=== PATIENT | male | born 1950 | race Caucasian/White ===

== ENCOUNTER 2020-03-01 09:58 | Outpatient (CLI) | payer MEDICARE | END 2020-03-01 09:59 | disposition critical access hospital (66) | LOC: EMS 09:58 | PROVIDERS: ATTEND Surgery | DX: R46.4 Slowness and poor responsiveness (principal); R53.83 Other fatigue | CPT/HCPCS: A0425; A0427 ==

== ENCOUNTER 2020-03-01 10:42 | Emergency (ER) | payer MEDICARE, OTHER ==
[2020-03-01] MEDS ORDERED: SODIUM CHLORIDE 0.9% 1,000 ML IV STA ×2 (11:02→13:02)
--- NOTE | 2020-03-01 11:04 | ED Physician Documentation ---
PD HPI SYNCOPE - Stated complaint Stated Complaint: WEAKNESS - Chief complaint Chief Complaint: General - History obtained from History obtained from: Patient, Family (), EMS (reportedly the patient felt some general weakness then had fainting, was unresponsive for about a minute. Medics arrived and he was awake, but BP was low in 60s. Improved with IV fluids. At baseline enroute and arrival here ( told medics he was at usual baseline at time they left the house with him).) - History of Present Illness Witnessed: Witnessed Timing - onset: How many minutes ago (2-3) Duration: Minutes Preceding symptoms: No: Headache, Chest pain Associated symptoms: No: Headache, Chest pain, Dyspnea, Nausea / vomiting, Abdominal pain Contributing factors: Decreased PO intake, Just stood up. No: Recent med change, Noxious stimulae Injury occurred: Fell. 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 Similar symptoms before: Has not had sx before Recently seen: Not recently seen Review of Systems Constitutional: denies: Fever, Chills Nose: denies: Rhinorrhea / runny nose, Congestion Throat: denies: Sore throat Respiratory: denies: Cough GI: denies: Abdominal Pain, Nausea, Vomiting, Diarrhea : denies: Dysuria Neurologic: reports: Generalized weakness PD PAST MEDICAL HISTORY - Past Medical History Past Medical History: No Cardiovascular: None Respiratory: None Neuro: Dementia - Allergies Allergies/Adverse Reactions: Allergies Allergy/AdvReac Type Severity Reaction Status Date / Time Unable to Assess Allergy Verified 03/01/20 10:58 - Living Situation Living Situation: reports: With spouse/s.o. Living Arrangement: reports: At home - Social History Does the pt smoke?: No Does the pt drink ETOH?: No Does the pt have substance abuse?: No - Family History Family history: reports: Non contributory PD ED PE NORMAL - Vitals Vital signs reviewed: Yes - General General: Alert and oriented X 3, Well developed/nourished - HEENT HEENT: Atraumatic, Pharynx benign. 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, No motor deficit, No sensory deficit, Normal speech Eye Opening: Spontaneous Motor: Obeys Commands Verbal: Oriented GCS Score: 15 Results - Vitals Vitals: Vital Signs - 24 hr 03/01/20 03/01/20 03/01/20 10:50 11:14 12:41 Temperature 36.4 C L Heart Rate 67 81 Heart Rate [ 80 Sitting] Heart Rate [ 88 Standing] Heart Rate [ 78 Supine] Respiratory 14 16 Rate Blood Pressure 113/65 143/90 H Blood Pressure 113/71 [Sitting] Blood Pressure 129/70 [Standing] Blood Pressure 106/75 [Supine] O2 Saturation 100 99 03/01/20 14:00 Temperature Heart Rate 88 Heart Rate [ Sitting] Heart Rate [ Standing] Heart Rate [ Supine] Respiratory 12 Rate Blood Pressure 135/84 H Blood Pressure [Sitting] Blood Pressure [Standing] Blood Pressure [Supine] O2 Saturation 97 Oxygen O2 Source Room air - EKG (time done) 10:48 Rate: Rate (enter#) (59) Rhythm: NSR [place]: Normal Intervals: Normal CO QRS: Normal Ischemia: Normal ST segments. No: ST elevation c/w ischemia, ST depression - Labs Labs: Laboratory Tests 03/01/20 03/01/20 03/01/20 11:41 11:41 11:41 WBC 12.3 H RBC 4.45 L Hgb 11.4 L Hct 36.6 L MCV 82.2 MCH 25.6 L MCHC 31.1 L RDW 15.8 H Plt Count 314 MPV 9.8 Neut # (Auto) 10.8 H Lymph # (Auto) 0.6 L [place] # (Auto) 0.7 Eos # (Auto) 0.1 Baso # (Auto) 0.1 Absolute Nucleated RBC 0.00 Nucleated RBC % 0.0 Sodium 137 Potassium 3.9 Chloride 104 Carbon Dioxide 25 Anion Gap 8.0 BUN 12 Creatinine 0.8 Estimated GFR (MDRD) 96 Glucose 116 H Lactic Acid Calcium 8.7 Magnesium 2.2 Total Bilirubin 0.3 AST 19 ALT 16 Alkaline Phosphatase 60 Troponin I High Sens 2.9 Total Protein 6.0 L Albumin 3.6 Globulin 2.4 Albumin/Globulin Ratio 1.5 Lipase 28 TSH Urine Color Urine Clarity Urine pH Ur Specific [place] Urine Protein Urine Glucose (UA) Urine Ketones Urine Occult Blood Urine Nitrite Urine Bilirubin Urine Urobilinogen Ur Leukocyte Esterase Ur Microscopic Review Urine Culture Comments Ethyl Alcohol < 5.0 03/01/20 03/01/20 03/01/20 11:41 11:41 12:46 WBC RBC Hgb Hct MCV MCH MCHC RDW Plt Count MPV Neut # (Auto) Lymph # (Auto) [place] # (Auto) Eos # (Auto) Baso # (Auto) Absolute Nucleated RBC Nucleated RBC % Sodium Potassium Chloride Carbon Dioxide Anion Gap BUN Creatinine Estimated GFR (MDRD) Glucose Lactic Acid 1.8 Calcium Magnesium Total Bilirubin AST ALT Alkaline Phosphatase Troponin I High Sens Total Protein Albumin Globulin Albumin/Globulin Ratio Lipase TSH 1.73 Urine Color YELLOW Urine Clarity CLEAR Urine pH 8.5 H Ur Specific [place] 1.020 Urine Protein TRACE Urine Glucose (UA) NEGATIVE Urine Ketones NEGATIVE Urine Occult Blood NEGATIVE Urine Nitrite NEGATIVE Urine Bilirubin NEGATIVE Urine Urobilinogen 0.2 (NORMAL) Ur Leukocyte Esterase NEGATIVE Ur Microscopic Review NOT INDICATED Urine Culture Comments NOT INDICATED Ethyl Alcohol - Rads (name of study) chest xray Radiology: Prelim report reviewed, See rad report (no acute process) PD MEDICAL DECISION MAKING - ED course Complexity details: reviewed results, re-evaluated patient (appears well with full color, and with him in room says he is acting at his usual alertness with the baseline orientation deficit from dementia. ), considered differential, d/w patient Departure - Departure Disposition: 01 Home, Self Care Clinical Impression: Transient hypotension Episode of syncope Qualifiers: Syncope type: unspecified Qualified Code(s): R55 - Syncope and collapse Condition: Stable Record reviewed to determine appropriate education?: Yes Instructions: ED Fainting Unkn Cause Follow-Up: Asher Campbell MD [Primary Care Provider] - Comments: No signs of obvious infection. I am not sure the cause of the syncopal episode. He looks good at this point. Stay well-hydrated and continue usual medicines. Recheck if recurrent episodes. Discharge Date/Time: 03/01/20 14:20
[2020-03-01 11:47] LABS: BASOPHILS # (AUTO) 0.1 10^3/uL (0.0-0.1); BASOPHILS % (AUTO) 0.4 %; EOSINOPHILS # (AUTO) 0.1 10^3/uL (0.0-0.7); EOSINOPHILS % (AUTO) 0.8 %; HGB - HEMOGLOBIN 11.4 g/dL (14.0-18.0); LYMPHOCYTES # (AUTO) 0.6 10^3/uL (1.5-3.5); LYMPHOCYTES % (AUTO) 4.6 %; MEAN CORPUSCULAR HEMOGLOBIN 25.6 pg (27.0-31.0); MEAN CORPUSCULAR HGB CONC 31.1 g/dL (32.0-36.0); MEAN CORPUSCULAR VOLUME 82.2 fL (80.0-94.0); MEAN PLATELET VOLUME 9.8 fL (7.4-11.4); MONOCYTES # (AUTO) 0.7 10^3/uL (0.0-1.0); MONOCYTES % (AUTO) 5.7 %; NEUTROPHILS # (AUTO) 10.8 10^3/uL (1.5-6.6); PLT - PLATELET COUNT 314 10^3/uL (130-450); RED BLOOD COUNT 4.45 10^6/uL (4.70-6.10); RED CELL DISTRIBUTION WIDTH 15.8 % (12.0-15.0); WHITE BLOOD COUNT 12.3 x10^3/uL (4.8-10.8)
--- NOTE | 2020-03-01 11:48 | XRAY Report ---
Reason: chest pain Procedure Date: 03/01/2020 Accession Number: [id number] / [id number] Procedure: XR - Chest 1 View X-Ray CPT Code: 21910 Final Report FULL RESULT: EXAM: CHEST RADIOGRAPHY EXAM DATE: 03/01/2020 11:19 AM. CLINICAL HISTORY: Chest pain. COMPARISON: None. TECHNIQUE: 1 view. FINDINGS: Lungs/Pleura: No focal opacities evident. No pleural effusion. No pneumothorax. Mediastinum: Within exam limitations, the cardiomediastinal contour is normal. Other: Mild dextrocurvature of the thoracic spine. IMPRESSION: No acute cardiopulmonary process. RADIA
[2020-03-01 12:37] LABS: ALBUMIN 3.6 g/dL (3.2-5.5); ALBUMIN/GLOBULIN RATIO 1.5 (1.0-2.2); ALKALINE PHOSPHATASE 60 IU/L (42-121); ALT ALANINE AMINOTRANSFERASE 16 IU/L (10-60); AST ASPARTATE AMINOTRANSFERASE 19 IU/L (10-42); BILIRUBIN,TOTAL 0.3 mg/dL (0.2-1.0); BUN - BLOOD UREA NITROGEN 12 mg/dL (6-20); CALCIUM 8.7 mg/dL (8.5-10.3); CARBON DIOXIDE - CO2 25 mmol/L (21-32); CHLORIDE 104 mmol/L (101-111); CREATININE 0.8 mg/dL (0.6-1.2); GLUCOSE 116 mg/dL (70-100); LIPASE 28 U/L (22-51); MAGNESIUM 2.2 mg/dL (1.7-2.8); SODIUM 137 mmol/L (135-145)
[2020-03-01 12:46] LABS: BILIRUBIN,URINE NEGATIVE (NEGATIVE); GLUCOSE, URINE (UA) NEGATIVE (NEGATIVE); KETONES,URINE (UA) NEGATIVE (NEGATIVE); LEUKOCYTE ESTERASE, URINE NEGATIVE (NEGATIVE); NITRITE,URINE NEGATIVE (NEGATIVE); OCCULT BLOOD,URINE NEGATIVE (NEGATIVE); PH,URINE 8.5 PH (5.0-7.5); PROTEIN,URINE TRACE mg/dL (NEGATIVE); UROBILINOGEN,URINE 0.2 (NORMAL) E.U./dL (NORMAL)
[2020-03-01 12:53] LABS: CLARITY,URINE CLEAR (CLEAR)
[2020-03-01 14:10] VITALS: BP 135/84
== END 2020-03-01 14:20 | disposition home or self-care (01) ==
LOC: EDBD → ED 10:42
DX: I95.9 Hypotension, unspecified (principal); R55 Syncope and collapse; F03.90 Unspecified dementia, unspecified severity, without behavioral disturbance, psychotic disturbance, mood disturbance, and anxiety
CPT/HCPCS: 36415; 71045; 80053; 80320; 81001; 81003; 83605; 83690; 83735; 84443; 84484; 85025; 87086; 93005; 96360; 96361; 99284

== ENCOUNTER 2020-05-13 14:45 | Emergency (ER) | payer MEDICARE ==
--- NOTE | 2020-05-13 15:09 | ED Physician Documentation ---
PD HPI MALE - Stated complaint Stated Complaint: MALE - Chief complaint Chief Complaint: Abd Pain - History obtained from History obtained from: Patient, Family () - History of Present Illness Timing - onset: How many days ago (has had lower abd cramping pains for about a week, worse the past 2-3 days. Seen at [facility] yesterday and found to have urinary retention with over 900 ml and also constipation by CT scan. Sy placed and has Urology follow up next Tuesday (a week) Rx Miralax. Dose today without output.) Timing - duration: Days Timing - details: Gradual onset, Still present, Waxing and waning Associated symptoms: Unable to urinate (which was solved with sy yesterday). No: Dysuria Similar symptoms before: Has not had sx before Recently seen: Emergency Dept (yesterday in [place].) Review of Systems Constitutional: denies: Fever, Chills Nose: denies: Rhinorrhea / runny nose, Congestion Throat: denies: Sore throat Cardiac: denies: Chest pain / pressure Respiratory: denies: Cough GI: reports: Abdominal Pain (intermittent lower cramps), Constipation. denies: Abdominal Swelling, Nausea, Vomiting, Diarrhea : reports: Unable to Void Skin: denies: Rash, Lesions Neurologic: reports: Generalized weakness. denies: Focal weakness, Numbness, Near syncope, Headache, Head injury Immunocompromised: denies: Immunocompromised PD PAST MEDICAL HISTORY - Past Medical History Cardiovascular: None Respiratory: None Neuro: Dementia GI: None : Benign prostate hypertrophy - Present Medications Home Medications: Ambulatory Orders Medication Instructions Recorded Confirmed Chlorhexidine Gluconate [Hibiclens] 15 ml TP DAILY #236 ml 05/13/20 Polyethylene Glycol 3350 [Miralax] 17 gm PO DAILY PRN #1 bottle 05/13/20 - Allergies Allergies/Adverse Reactions: Allergies Allergy/AdvReac Type Severity Reaction Status Date / Time Unable to Assess Allergy Verified 03/01/20 10:58 - Living Situation Living Situation: reports: With spouse/s.o. Living Arrangement: reports: At home - Social History Does the pt smoke?: No Smoking Status: Never smoker Does the pt drink ETOH?: No Does the pt have substance abuse?: No PD ED PE NORMAL - Vitals Vital signs reviewed: Yes - General General: Alert and oriented X 3, No acute distress, Well developed/nourished - HEENT HEENT: Pharynx benign - Neck Neck: Supple, no meningeal sign, No adenopathy - Cardiac Cardiac: RRR, No murmur - Respiratory Respiratory: Clear bilaterally - Abdomen Abdomen: Normal bowel sounds, Soft, Non distended, No organomegaly, Other (minimally tender lower abd without guarding nor percussion tenderness. ) - Male Male : Other (sy in place, draining dark yellow urine. ) - Rectal Rectal: Other (small amount soft brown stool in vault. No impaction. Not tender. ) - Derm Derm: Normal color, Warm and dry - Extremities Extremities: No tenderness to palpate, Normal ROM s pain - Neuro Neuro: Alert and oriented X 3, No motor deficit, Normal speech, Other (forgetful of short term memory) Results - Vitals Vitals: Vital Signs - 24 hr 05/13/20 05/13/20 14:53 19:00 Temperature 36.8 C Heart Rate 70 78 Respiratory 14 13 Rate Blood Pressure 134/112 H 144/98 H O2 Saturation 99 99 Oxygen O2 Source Room air - Labs Labs: Laboratory Tests 05/13/20 05/13/20 16:25 16:25 WBC 7.1 RBC 4.38 L Hgb 11.7 L Hct 36.7 L MCV 83.8 MCH 26.7 L MCHC 31.9 L RDW 15.4 H Plt Count 267 MPV 10.5 Neut # (Auto) 4.7 Lymph # (Auto) 1.1 L [place] # (Auto) 0.9 Eos # (Auto) 0.3 Baso # (Auto) 0.1 Absolute Nucleated RBC 0.00 Nucleated RBC % 0.0 Sodium 138 Potassium 3.9 Chloride 103 Carbon Dioxide 27 Anion Gap 8.0 BUN 20 Creatinine 0.6 Estimated GFR (MDRD) 134 Glucose 96 Calcium 9.3 Magnesium 2.1 Total Bilirubin 0.4 AST 19 ALT 16 Alkaline Phosphatase 76 Total Protein 6.8 Albumin 3.9 Globulin 2.9 Albumin/Globulin Ratio 1.3 Lipase 26 PD MEDICAL DECISION MAKING - ED course Complexity details: re-evaluated patient (given IV fluids and enema in ER, which took awhile. 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 ), considered differential (sy draining, but dark yellow so presume underhydrated. Not impacted rectally. Can give enema to increase peristaltic activity. Increase the home Miralax to q1H until having more stool output, then to decrease to daily. ), d/w patient Departure - Departure Disposition: Home, Self Care Clinical Impression: Abdominal fullness, Dehydration Constipation Qualifiers: Constipation type: unspecified constipation type Qualified Code(s): K59.00 - Constipation, unspecified Condition: Stable Record reviewed to determine appropriate education?: Yes Instructions: ED Constipation Follow-Up: Asher Campbell MD [Primary Care Provider] - Prescriptions: Chlorhexidine Gluconate [Hibiclens] 15 ml TP DAILY #236 ml Polyethylene Glycol 3350 [Miralax] 17 gm PO DAILY PRN #1 bottle PRN Reason: Constipation Comments: His urine is coming out later so seems to be better hydrated. At home use the MiraLAX he had been prescribed 17 g dose every 1-2 hours until soft stool is outputting and then go to the once or twice daily for the next couple of weeks. Frequent fluids and food as tolerated. Follow-up with the urologist regarding the Sy catheter next week as planned. Return if problems persist Discharge Date/Time: 05/13/20 19:16
[2020-05-13] MEDS ORDERED: SODIUM CHLORIDE 0.9% 1,000 ML IV STA ×2 (15:41→15:43)
[2020-05-13] MEDS ORDERED: SOAP SUDS ENEMA 1 EACH RC ONE (15:41)
[2020-05-13] MEDS ORDERED: MAGNESIUM CITRATE 296 ML BOTTLE PO STA (15:42)
[2020-05-13 16:44] LABS: BASOPHILS # (AUTO) 0.1 10^3/uL (0.0-0.1); EOSINOPHILS # (AUTO) 0.3 10^3/uL (0.0-0.7); EOSINOPHILS % (AUTO) 3.5 %; HGB - HEMOGLOBIN 11.7 g/dL (14.0-18.0); LYMPHOCYTES # (AUTO) 1.1 10^3/uL (1.5-3.5); MEAN CORPUSCULAR HEMOGLOBIN 26.7 pg (27.0-31.0); MEAN CORPUSCULAR HGB CONC 31.9 g/dL (32.0-36.0); MEAN CORPUSCULAR VOLUME 83.8 fL (80.0-94.0); MEAN PLATELET VOLUME 10.5 fL (7.4-11.4); MONOCYTES # (AUTO) 0.9 10^3/uL (0.0-1.0); MONOCYTES % (AUTO) 12.9 %; NEUTROPHILS # (AUTO) 4.7 10^3/uL (1.5-6.6); NEUTROPHILS % (AUTO) 66.3 %; PLT - PLATELET COUNT 267 10^3/uL (130-450); RED BLOOD COUNT 4.38 10^6/uL (4.70-6.10); RED CELL DISTRIBUTION WIDTH 15.4 % (12.0-15.0); WHITE BLOOD COUNT 7.1 x10^3/uL (4.8-10.8)
[2020-05-13 16:57] LABS: ALBUMIN 3.9 g/dL (3.2-5.5); ALBUMIN/GLOBULIN RATIO 1.3 (1.0-2.2); BILIRUBIN,TOTAL 0.4 mg/dL (0.2-1.0); CALCIUM 9.3 mg/dL (8.5-10.3); CREATININE 0.6 mg/dL (0.6-1.2); MAGNESIUM 2.1 mg/dL (1.7-2.8); TOTAL PROTEIN 6.8 g/dL (6.7-8.2)
[2020-05-13 19:16] VITALS: BP 144/98
== END 2020-05-13 19:16 | disposition home or self-care (01) ==
LOC: ED 14:45
DX: E86.0 Dehydration (principal); K59.00 Constipation, unspecified; N40.1 Benign prostatic hyperplasia with lower urinary tract symptoms; R33.8 Other retention of urine; F03.90 Unspecified dementia, unspecified severity, without behavioral disturbance, psychotic disturbance, mood disturbance, and anxiety
CPT/HCPCS: 36415; 80053; 83690; 83735; 85025; 99283; 99284; A9270

== ENCOUNTER 2021-03-27 07:06 | Emergency (ER) | payer MEDICARE ==
--- NOTE | 2021-03-27 07:19 | ED Physician Documentation ---
PD HPI NVD - Stated complaint Stated Complaint: NAUSEA/DIARRHEA - History obtained from History obtained from: Patient - History of Present Illness Timing - onset: Yesterday Timing - duration: Days (1) Timing - details: Abrupt onset, Still present Associated symptoms: Abdominal pain (lower abd, left and suprapubic area), Loss of appetite, Other (nausea with 2 episodes of emesis, not consistent.). No: Fever Contributing factors: No: Sick contact, Bad food, Recent antibiotics Improved by: No: Vomiting Worsened by: Eating Similar symptoms before: Has not had sx before Recently seen: Not recently seen Review of Systems Constitutional: reports: Myalgias, Fatigue. denies: Fever, Chills Nose: denies: Rhinorrhea / runny nose, Congestion Throat: denies: Sore throat Cardiac: denies: Chest pain / pressure Respiratory: denies: Cough GI: reports: Nausea, Vomiting (just couple of times), Diarrhea (loose stools twice overnight). denies: Constipation : reports: Other (has indwelling sy without dysfunction. It is due to be changed on schedule this coming week.) Neurologic: reports: Generalized weakness. denies: Headache PD PAST MEDICAL HISTORY - Past Medical History Cardiovascular: None Respiratory: None Neuro: Dementia Endocrine/Autoimmune: None GI: None : Benign prostate hypertrophy HEENT: None Psych: None Musculoskeletal: None Derm: None - Past Surgical History Past Surgical History: Yes - Present Medications Home Medications: Ambulatory Orders Medication Instructions Recorded Confirmed polyethylene glycoL 3350 [Miralax] 17 gm PO DAILY PRN #1 bottle 05/13/20 03/27/21 Meloxicam [Mobic] 1 tablet PO DAILY PRN 03/27/21 03/27/21 Ondansetron Odt [Zofran] 4 mg TL Q6H PRN #10 tablet 03/27/21 QUEtiapine [SEROquel] 25 mg PO QPM 03/27/21 03/27/21 cephALEXin [Keflex] 500 mg PO TID #20 cap 03/27/21 - Allergies Allergies/Adverse Reactions: Allergies Allergy/AdvReac Type Severity Reaction Status Date / Time No Known Drug Allergies Allergy Verified 03/27/21 07:20 - Social History Does the pt smoke?: No Smoking Status: Never smoker Does the pt drink ETOH?: No Does the pt have substance abuse?: No - Immunizations Immunizations are current?: Yes PD ED PE NORMAL - Vitals Vital signs reviewed: Yes - General General: No acute distress, Well developed/nourished. No: Alert and oriented X 3 (poor short term memory. Oriented to person and place. Comforted by if gets anxious with movement/activity around him. ) - HEENT HEENT: Atraumatic - Neck Neck: Supple, no meningeal sign, No adenopathy - Cardiac Cardiac: RRR, No murmur - Respiratory Respiratory: Clear bilaterally - Abdomen Abdomen: Normal bowel sounds, Soft, Non distended, No organomegaly, Other (some tender without guarding LLQ and suprapubic area. No percussion nor rebound tenderness. 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 ) - Rectal Rectal: Other (no impaction in vault; soft brown stool. ) - Back Back: No CVA TTP - Derm Derm: Normal color, Warm and dry - Extremities Extremities: No edema, No calf tenderness / cord - Neuro Neuro: No motor deficit, No sensory deficit, Normal speech - Psych Psych: No: Normal affect (anxious with activity around him. ) Results - Vitals Vitals: Vital Signs - 24 hr 03/27/21 03/27/21 03/27/21 07:16 09:47 11:37 Temperature 36.5 C Heart Rate 84 84 78 Respiratory 16 16 16 Rate Blood Pressure 170/84 H 116/99 H 136/81 H O2 Saturation 99 99 98 Oxygen O2 Source Room air - Labs Labs: Laboratory Tests 03/27/21 03/27/21 03/27/21 07:50 08:29 08:35 WBC 9.6 RBC 4.68 L Hgb 13.2 L Hct 40.4 L MCV 86.3 MCH 28.2 MCHC 32.7 RDW 14.8 Plt Count 372 MPV 10.1 Neut # (Auto) 8.3 H Lymph # (Auto) 0.7 L [place] # (Auto) 0.5 Eos # (Auto) 0.0 Baso # (Auto) 0.0 Absolute Nucleated RBC 0.00 Nucleated RBC % 0.0 Sodium 139 Potassium 4.3 Chloride 103 Carbon Dioxide 23 Anion Gap 13.0 BUN 20 Creatinine 0.5 L Estimated GFR (MDRD) 165 Glucose 128 H Calcium 9.0 Total Bilirubin 0.4 AST 16 ALT 14 Alkaline Phosphatase 83 Total Protein 6.9 Albumin 3.9 Globulin 3.0 Albumin/Globulin Ratio 1.3 Lipase 22 Urine Color YELLOW Urine Clarity SL. CLOUDY Urine pH 8.5 H Ur Specific [place] 1.015 Urine Protein NEGATIVE Urine Glucose (UA) NEGATIVE Urine Ketones NEGATIVE Urine Occult Blood NEGATIVE Urine Nitrite POSITIVE H Urine Bilirubin NEGATIVE Urine Urobilinogen 0.2 (NORMAL) Ur Leukocyte Esterase MODERATE H Urine RBC None Seen Urine WBC >25 H Urine WBC Clumps PRESENT Ur Squamous Epith Cells NONE SEEN Urine Bacteria Moderate H Ur Microscopic Review INDICATED Urine Culture Comments INDICATED - Rads (name of study) abd/pelvic CT Radiology: Prelim report reviewed (diverticula without itis. No acute process otherwise. ), See rad report PD MEDICAL DECISION MAKING - ED course Complexity details: reviewed results (CT without focal abnormality. WIthout other cause for lower abd pain and nausea/malaise, I presume the urine UA abnormality represents true infecdtion. ), re-evaluated patient (improved with IV fluids and meds. Taking PO fluids. Feeling more alert. ), considered differential, d/w patient Departure - Departure Disposition: 01 Home, Self Care Clinical Impression: Lower abdominal pain, Chronic indwelling Sy catheter Nausea and vomiting Qualifiers: Vomiting type: unspecified Vomiting Intractability: non-intractable Qualified Code(s): R11.2 - Nausea with vomiting, unspecified Constipation Qualifiers: Constipation type: unspecified constipation type Qualified Code(s): K59.00 - Constipation, unspecified UTI (urinary tract infection) Qualifiers: Urinary tract infection type: catheter-associated UTI Indwelling urinary catheter type: indwelling urethral catheter Encounter type: initial encounter Qualified Code(s): T83.511A - Infection and inflammatory reaction due to indwelling urethral catheter, initial encounter Condition: Stable Record reviewed to determine appropriate education?: Yes Instructions: ED Nausea Vomiting Follow-Up: Asher Campbell MD [Primary Care Provider] - Prescriptions: cephALEXin [Keflex] 500 mg PO TID #20 cap Ondansetron Odt [Zofran] 4 mg TL Q6H PRN #10 tablet PRN Reason: Nausea / Vomiting Comments: Continue usual medications. Add cephalexin 3 times a day for a week for apparent urinary tract infection. Ondansetron if needed for nausea or vomiting as directed. There was signs of fullness of stool in the lower colon so you can give the mag citrate and also consider like a Dulcolax suppository to help with stool output. The looseness of stool yesterday and today is likely just the soften stool getting around the constipation. No signs of obstruction on CT scan. Given his symptoms, we would consider a possible urinary tract infection in the urine sample shows signs of bacteria and white cells and nitrites. As such we will treat with cephalexin 3 times a day. The urine culture will result in a couple of days and guide us if we need to change that. Recheck if not improved well over the next day or so. Discharge Date/Time: 03/27/21 11:56
[2021-03-27] MEDS ORDERED: SODIUM CHLORIDE 0.9% 1,000 ML IV STA (07:42)
[2021-03-27] MEDS ORDERED: ONDANSETRON 4 MG/2 ML VIAL IVP STA (07:42)
[2021-03-27] MEDS ORDERED: KETOROLAC 15 MG/ML VIAL IVP STA (07:42)
[2021-03-27 07:58] LABS: BASOPHILS % (AUTO) 0.3 %; EOSINOPHILS % (AUTO) 0.1 %; HCT - HEMATOCRIT 40.4 % (42.0-52.0); HGB - HEMOGLOBIN 13.2 g/dL (14.0-18.0); LYMPHOCYTES # (AUTO) 0.7 10^3/uL (1.5-3.5); LYMPHOCYTES % (AUTO) 7.2 %; MEAN CORPUSCULAR HEMOGLOBIN 28.2 pg (27.0-31.0); MEAN CORPUSCULAR HGB CONC 32.7 g/dL (32.0-36.0); MEAN CORPUSCULAR VOLUME 86.3 fL (80.0-94.0); MEAN PLATELET VOLUME 10.1 fL (7.4-11.4); MONOCYTES # (AUTO) 0.5 10^3/uL (0.0-1.0); MONOCYTES % (AUTO) 4.8 %; NEUTROPHILS # (AUTO) 8.3 10^3/uL (1.5-6.6); NEUTROPHILS % (AUTO) 86.9 %; PLT - PLATELET COUNT 372 10^3/uL (130-450); RED BLOOD COUNT 4.68 10^6/uL (4.70-6.10); RED CELL DISTRIBUTION WIDTH 14.8 % (12.0-15.0); WHITE BLOOD COUNT 9.6 x10^3/uL (4.8-10.8)
[2021-03-27] MEDS ORDERED: IOVERSOL 320 100 ML VIAL IVP ONE ×2 (08:08→10:11)
[2021-03-27 08:48] LABS: ALBUMIN 3.9 g/dL (3.2-5.5); ALBUMIN/GLOBULIN RATIO 1.3 (1.0-2.2); BILIRUBIN,TOTAL 0.4 mg/dL (0.2-1.0); CREATININE 0.5 mg/dL (0.6-1.2); POTASSIUM 4.3 mmol/L (3.5-5.0); TOTAL PROTEIN 6.9 g/dL (6.7-8.2)
[2021-03-27 08:50] LABS: BILIRUBIN,URINE NEGATIVE (NEGATIVE); GLUCOSE, URINE (UA) NEGATIVE (NEGATIVE); KETONES,URINE (UA) NEGATIVE (NEGATIVE); LEUKOCYTE ESTERASE, URINE MODERATE (NEGATIVE); NITRITE,URINE POSITIVE (NEGATIVE); OCCULT BLOOD,URINE NEGATIVE (NEGATIVE); PH,URINE 8.5 PH (5.0-7.5); PROTEIN,URINE NEGATIVE (NEGATIVE); UROBILINOGEN,URINE 0.2 (NORMAL) E.U./dL (NORMAL)
[2021-03-27 08:52] LABS: CLARITY,URINE SL. CLOUDY (CLEAR)
[2021-03-27 09:03] LABS: BACTERIA,URINE Moderate /HPF (None Seen); RBC,URINE None Seen /HPF (0-5); SQUAMOUS EPITHELIAL CELL,UR NONE SEEN (<= Few); WBC CLUMPS,URINE PRESENT; WBC,URINE >25 /HPF (0-3)
--- NOTE | 2021-03-27 10:12 | CT Report ---
PROCEDURE: Abdomen/Pelvis W INDICATIONS: LLQ Abdominal pain, diverticulitis suspected CONTRAST: IV CONTRAST: Optiray 320 ml: 100 PO CONTRAST: *NO PO CONTRAST TECHNIQUE: After the administration of contrast, 5 mm thick sections acquired from the diaphragms to the symphy sis. 5 mm thick coronal and sagittal reformats were acquired. For radiation dose reduction, the fol lowing was used: automated exposure control, adjustment of mA and/or kV according to patient size. COMPARISON: None. FINDINGS: Image quality: There is extensive metallic streak artifact from patient's bilateral hip prostheses li miting evaluation. ABDOMEN: Lung bases: There is mild dependent atelectasis. Heart size is normal. There is a small hiatal hernia . Solid organs: There is hypoattenuation of the liver consistent with fatty infiltration. Gallbladder a ppears within normal limits without calcified gallstones. Biliary system is non dilated. The spleen is normal in size. Pancreas enhances normally without peripancreatic fat stranding or fluid collectio ns. No adrenal nodules. Kidneys demonstrate no hydronephrosis. Peritoneum and bowel: Small bowel loops demonstrate normal wall thickness and caliber. The appendix i s not discretely visualized but there are no pericecal inflammatory changes to suggest appendicitis. There is moderate colonic stool distention most prominent within the descending and rectosigmoid colo n suggestive of constipation. No evidence of bowel obstruction. There is colonic diverticulosis witho ut acute diverticulitis. No free fluid or air. Nodes and vessels: No retroperitoneal or mesenteric adenopathy by size criteria. Aorta and inferior vena cava are normal in size. Miscellaneous: No ventral hernias. PELVIS: Genitourinary: There is an air-fluid level within the bladder. Evaluation of the bladder is limited b y streak artifact. Miscellaneous: There is a small to moderate-sized right inguinal hernia containing loops of small viry wel. No evidence of associated bowel obstruction or strangulation. No inguinal adenopathy. Bones: No suspicious bony lesions. No vertebral body compression fractures. IMPRESSION: 1. Colonic diverticulosis without acute diverticulitis. 2. Moderate colonic stool distention suggestive of constipation. No evidence of bowel obstruction. 3. Small to moderate size inguinal hernia containing loops of small bowel. No associated bowel obstru ction or evidence of bowel strangulation. 4. Air-fluid level demonstrated within the bladder. The findings may reflect sequelae of recent pilar terization. Alternatively, this may reflect infection from a gas-forming organism. Recommend correlat ion clinically including with urinalysis. Reviewed by: Arya Garcia MD on 03/27/2021 10:11 AM PDT Approved by: Arya Garcia MD on 03/27/2021 10:11 AM PDT Station ID: [id number]
[2021-03-27] MEDS ORDERED: cefTRIAXone 1 GM VIAL IVP STA (10:19)
[2021-03-27] MEDS ORDERED: DROPERIDOL 5 MG/2 ML VIAL IVP STA (11:04)
[2021-03-27 11:39] VITALS: BP 136/81
== END 2021-03-27 11:56 | disposition home or self-care (01) ==
LOC: ED 07:06
DX: T83.511A Infection and inflammatory reaction due to indwelling urethral catheter, initial encounter (principal); Y84.6 Urinary catheterization as the cause of abnormal reaction of the patient, or of later complication, without mention of misadventure at the time of the procedure; R11.2 Nausea with vomiting, unspecified; K59.00 Constipation, unspecified; K57.30 Diverticulosis of large intestine without perforation or abscess without bleeding; K40.90 Unilateral inguinal hernia, without obstruction or gangrene, not specified as recurrent; F03.90 Unspecified dementia, unspecified severity, without behavioral disturbance, psychotic disturbance, mood disturbance, and anxiety
CPT/HCPCS: 36415; 51702; 74177; 80053; 81001; 83690; 85025; 87077; 87086; 87181; 96374; 96375; 99284; 99285; Q9967; 81003

== ENCOUNTER 2021-06-28 06:15 | Outpatient (CLI) | payer MEDICARE | END 2021-06-28 06:16 | disposition critical access hospital (66) | LOC: EMS 06:15 | DX: S01.01XA Laceration without foreign body of scalp, initial encounter (principal); W19.XXXA Unspecified fall, initial encounter; Y92.198 Other place in other specified residential institution as the place of occurrence of the external cause | CPT/HCPCS: A0425; A0429 ==

== ENCOUNTER 2021-06-28 06:35 | Emergency (ER) | payer MEDICARE ==
--- NOTE | 2021-06-28 07:03 | ED Physician Documentation ---
PD HPI HEAD INJURY - Stated complaint Stated Complaint: GLF - Chief complaint Chief Complaint: Laceration - History obtained from History obtained from: Patient (dementia and does not remember the incident), EMS, Caregiver (Staff heard a fall at home place and found him on the floor a week with a laceration in the back of the head. No vomiting no altered mentation.) - History of Present Illness Mechanism of head injury: Fell ([facility]) Where head injury occurred: Other ([facility]) Timing - onset: Today Location of injury: Back Associated symptoms: No: LOC, Nausea / vomiting Symptoms worsen with: Palpation Contributing factors: No: Anticoagulated Review of Systems Cardiac: denies: Chest pain / pressure GI: denies: Abdominal Pain Skin: reports: Laceration (s) Neurologic: denies: Focal weakness, Numbness, Altered mental status, Headache PD PAST MEDICAL HISTORY - Past Medical History Past Medical History: Yes Cardiovascular: None Respiratory: None Neuro: Dementia Endocrine/Autoimmune: None GI: None : Benign prostate hypertrophy HEENT: None Psych: None Musculoskeletal: None Derm: None - Past Surgical History Past Surgical History: Yes - Present Medications Home Medications: Ambulatory Orders Medication Instructions Recorded Confirmed polyethylene glycoL 3350 [Miralax] 17 gm PO DAILY PRN #1 bottle 05/13/20 03/27/21 Meloxicam [Mobic] 1 tablet PO DAILY PRN 03/27/21 03/27/21 Ondansetron Odt [Zofran] 4 mg TL Q6H PRN #10 tablet 03/27/21 QUEtiapine [SEROquel] 25 mg PO QPM 03/27/21 03/27/21 cephALEXin [Keflex] 500 mg PO TID #20 cap 03/27/21 - Allergies Allergies/Adverse Reactions: Allergies Allergy/AdvReac Type Severity Reaction Status Date / Time No Known Drug Allergies Allergy Verified 06/28/21 06:46 - Social History Does the pt smoke?: No Smoking Status: Never smoker Does the pt drink ETOH?: No Does the pt have substance abuse?: No - Immunizations Immunizations are current?: Yes PD ED PE NORMAL - Vitals Vital signs reviewed: Yes - General General: No acute distress, Well developed/nourished, Other (aleert and conversant, knows self. c/w dementia does not know place/time. Grumpy and swearing a lot. ) - HEENT HEENT: Other (upper occpiut with 2 cm lac with mild bleeding. NO FB. Local tender. ) - Neck Neck: No bony TTP - Extremities Extremities: Normal ROM s pain - Neuro Neuro: No motor deficit, No sensory deficit Eye Opening: Spontaneous Motor: Obeys Commands Verbal: Confused GCS Score: 14 Results - Vitals Vitals: Oxygen O2 Source Room air Procedures - Laceration (location) occiput Length in cm: 2 Wound type: Linear, Into subcut fat, Clean Anesthesia: Lidocaine 1% with epi Wound preparation: Wound explored Skin layer closure: [facility] PD MEDICAL DECISION MAKING - ED course Complexity details: considered differential (appears well, no concussive symptoms. Not on anticoags.) Departure - Departure Disposition: 01 Home, Self Care Clinical Impression: Scalp laceration Qualifiers: Encounter type: initial encounter Qualified Code(s): S01.01XA - Laceration without foreign body of scalp, initial encounter Condition: Stable Record reviewed to determine appropriate education?: Yes Instructions: ED Laceration Scalp Stitch Or Stap Comments: It is okay to wash and shower. Clean off the wound twice a day with soap and water, or peroxide and water. Apply some antibiotic ointment to it to keep it m oist. Also to watch for signs of infection such as purulence, redness or increasing pain. Return to your primary care or the ER at the specified time for suture removal. Staple removal 8 to 10 days. Tylenol if needed for pains. Discharge Date/Time: 06/28/21 10:13
[2021-06-28] MEDS ORDERED: LIDOCAINE 1%-EPI 1:100000 20 ML MDV SUBQ STA (07:08)
[2021-06-28 10:13] VITALS: BP 120/90
== END 2021-06-28 10:13 | disposition home or self-care (01) ==
LOC: EDUNIT# → ED 06:35
DX: S01.01XA Laceration without foreign body of scalp, initial encounter (principal); W19.XXXA Unspecified fall, initial encounter; Y92.099 Unspecified place in other non-institutional residence as the place of occurrence of the external cause; F03.90 Unspecified dementia, unspecified severity, without behavioral disturbance, psychotic disturbance, mood disturbance, and anxiety
CPT/HCPCS: 12001; 99282; 99283